=== PATIENT | male | born 1995 | race Caucasian/White ===

== ENCOUNTER 2016-09-27 20:50 | Emergency (ER) | payer OTHER ==
[~2016-09-27] VITALS: Ht 172.7 cm; Wt 6.7 kg
[2016-09-27 20:59] VITALS: TEMP 37.1; Ht 172.7 cm; Wt 6.7 kg
--- NOTE | 2016-09-27 21:43 | EMERGENCY ROOM VISIT NOTE ---
History Report prepared by Naty: Kenneth Arceo Under the Supervision of: Dr. Willy Marshall D.O. First contact with patient: 21:04 Chief Complaint: RECTAL BLEEDING Stated Complaint: BLOODY STOOLS History of Present Illness The patient is a 21 year old male who presents to the Emergency Room with complaints of rectal pain and bleeding that he has been experiencing for the past "few weeks." the patient states that, initially, he only noticed the blood when he would wipe after a bowel movement. This evening he noticed a significant amount of blood in the toilet bowel following a bowel movement, he does not believe there was any blood in the stool. He also complains of a "tearing pain" in the rectum while having a BM. The patient notes that he has a history of depression and is currently in a sex transition. Source of History: patient Onset: a few weeks [employer] Position: other (Rectum) Quality: other (Rectal bleed, Tearing pain ) Associated Symptoms: No melena Review of Systems See HPI for pertinent positives & negatives. A total of 10 systems reviewed and were otherwise negative. Past Medical & Surgical Medical Problems: (1) Depression Depression Family History Cancer Diabetes mellitus Heart disease Hypertension Social History Smoking Status: Never Smoker Marital Status: single Housing Status: lives alone Occupation Status: unemployed Current/Historical Medications Scheduled Escitalopram (Lexapro), 10 MG PO DAILY Estradiol (Estradiol), 1 TAB PO TID Polyethylene Glycol 3350 (Miralax), 0.5 PKT PO DAILY Progesterone Micronized (Progesterone), 1 CAP PO DAILY Quetiapine Fumarate Xr (Seroquel Xr), 200 MG PO DAILY Spironolactone (Aldactone), 50 MG PO DAILY Scheduled PRN Lorazepam (Ativan), 1 MG PO BID PRN for Anxiety Physical Exam Vital Signs Date Time Temp Pulse Resp B/P Pulse Ox O2 Delivery O2 Flow Rate FiO2 09/27/16 22:35 90 18 137/78 98 Room Air 09/27/16 20:59 37.1 114 20 133/76 100 Room Air Physical Exam GENERAL: Patient is awake, alert, and in no acute distress. Patient is resting comfortably and showing no signs of anxiety EYES: The conjunctivae are clear. The pupils are round and reactive. EARS, NOSE, MOUTH AND THROAT: The nose is without any evidence of any deformity. Mucous membranes are moist tongue is midline NECK: The neck is nontender and supple. RESPIRATORY: Normal respiratory effort is noted there is no evidence of wheezing rhonchi or rales CARDIOVASCULAR: Regular rate and rhythm noted there no murmurs rubs or gallops normal S1 normal S2 GASTROINTESTINAL: The abdomen is soft. Bowel sounds are present in all quadrants. Abdomen is nontender PELVIS: The Pelvis is stable. No tenderness to palpation is noted. BACK: No midline tenderness or or step-off noted range of motion in flexion extension as well as rotation no signs of muscle spasm noted MUSCULOSKELETAL/EXTREMITIES: There is no evidence of gross deformity full range of motion is noted in the hips and shoulders SKIN: There is no obvious evidence of any rash. There are no petechiae, pallor or cyanosis noted. NEUROLOGIC: Patient is awake alert and oriented x3. RECTAL: Exam reveals a fissure at 1 o'clock position. There was a small amount of bleeding noted. No hemorrhoids were appreciated, no signs of fluctuance or purulence drainage noted. Medical Decision & Procedures ED Course 2134: The patient was evaluated in room C9. A complete history and physical examination were performed. 2241: Upon reevaluation, the patient is resting in bed. I discussed the results and treatment plan with him. He verbalized agreement of the treatment plan. The patient was discharged home. Medical Decision Differential diagnosis: Etiologies such as diverticulosis, AVM, coagulopathy, colitis, inflammatory bowel disease, malignancy, Racheal-Crawley tear, esophagitis, peptic ulcer disease , variceal bleed, gastritis, epistaxis, fissure, hemorrhoids, as well as others were entertained. Nursing notes reviewed. The patient is a 21-year-old who presented to the emergency department for an evaluation of rectal bleeding. The patient had signs of a fissure on physical exam. His history and physical exam appeared to be consistent with a rectal fissure. I discussed the patient's diagnosis with him. He was encouraged to continue all medications as prescribed and follow-up with his primary care physician for further evaluation. Impression Primary Impression: Rectal fissure Additional Impression: Rectal bleed Scribe Attestation The scribe's documentation has been prepared under my direction and personally reviewed by me in its entirety. I confirm that the note above accurately reflects all work, treatment, procedures, and medical decision making performed by me. Departure Information Dispostion Home / Self-Care Prescriptions Polyethylene Glycol 3350 (MIRALAX) 1 Pow Pow 0.5 PKT PO DAILY, #527 GM Prov: Willy Marshall, DO 09/27/16 Referrals [facility] (PCP) Forms HOME CARE DOCUMENTATION FORM, IMPORTANT VISIT INFORMATION, WORK / SCHOOL INSTRUCTIONS Patient Instructions My [facility] Additional Instructions Follow-up with [facility] this week. Try an [id number] hemorrhoid cream for the anal fissure as directed. Problem Qualifiers
[2016-09-27] MEDS ORDERED: POLY335019 PO (21:44)
[2016-09-27 22:35] VITALS: BP 137/78; PULSE 90; O2SAT 98
[2016-09-27] MEDS ORDERED: ESTR2TAB PO (22:53)
[2016-09-27] MEDS ORDERED: QUET200T2 PO (22:53)
[2016-09-27] MEDS ORDERED: PROG1CAP2 PO (22:53)
[2016-09-27] MEDS ORDERED: ESCI10TA17 PO (22:53)
[2016-09-27] MEDS ORDERED: QUET1TAB32 PO (22:53)
[2016-09-27] MEDS ORDERED: ATV/1 PO (22:53)
[2016-09-27] MEDS ORDERED: SPIR50TA2 PO (22:53)
== END 2016-09-27 22:56 | disposition home or self-care (01) ==
LOC: C.EDB 20:54 → C.EDC 22:56
DX: K60.2 Anal fissure, unspecified (principal); F32.9 Major depressive disorder, single episode, unspecified; Z80.9 Family history of malignant neoplasm, unspecified; Z83.3 Family history of diabetes mellitus; Z82.49 Family history of ischemic heart disease and other diseases of the circulatory system; Z79.899 Other long term (current) drug therapy

== ENCOUNTER 2017-01-03 00:41 | Emergency (ER) | payer OTHER ==
[~2017-01-03] VITALS: Ht 172.7 cm; Wt 64.0 kg
[~2017-01-03 00:41] MED LIST: ATV/1 PO; ESCI10TA17 PO; ESTR2TAB PO; POLY335019 PO; PROG1CAP2 PO; QUET200T2 PO; SPIR50TA2 PO
[2017-01-03 00:54] VITALS: TEMP 36.8; Ht 172.7 cm; Wt 64.0 kg
--- NOTE | 2017-01-03 01:02 | EMERGENCY ROOM VISIT NOTE ---
History Report prepared by Naty: Evangelista Francisco Under the Supervision of: Dr. Leo Martinez M.D. First contact with patient: 00:45 Chief Complaint: ALCOHOL OVERDOSE Stated Complaint: ALCOHOL OVERDOSE/DRUG USE History of Present Illness The patient is a 21 year old white male with no known past medical history who presents to the ED with a cc of alcohol intoxication beginning earlier tonight. Positive for taking LSD. Negative tobacco use. History is limited secondary to intoxication. Source of History: patient History Limited By: intoxication Onset: earlier tonight Position: other (global) Quality: other (alcohol intoxication) Review of Systems ROS unable to obtain 2/2 to substance use and intoxication Past Medical & Surgical Medical Problems: (1) Depression Family History Cancer Diabetes mellitus Heart disease Hypertension Social History Smoking Status: Never Smoker Marital Status: single Housing Status: lives alone Occupation Status: unemployed Current/Historical Medications Scheduled Escitalopram (Lexapro), 10 MG PO DAILY Estradiol (Estradiol), 2 MG PO TID Polyethylene Glycol 3350 (Miralax), 0.5 PKT PO DAILY Progesterone Micronized (Progesterone), 200 MG PO DAILY Quetiapine Fumarate Xr (Seroquel Xr), 200 MG PO DAILY Spironolactone (Aldactone), 50 MG PO DAILY Scheduled PRN Lorazepam (Ativan), 1 MG PO BID PRN for Anxiety Allergies Coded Allergies: No Known Allergies (Unverified , 01/03/17) Physical Exam Vital Signs Date Time Temp Pulse Resp B/P (MAP) Pulse Ox O2 Delivery O2 Flow Rate FiO2 01/03/17 01:08 93 01/03/17 00:54 36.8 84 16 117/68 99 Room Air Physical Exam GENERAL: Well-appearing, NAD. Slurred speech. HENT: No obvious signs of trauma. Normocephalic. EYES: Pupils are round and reactive to light at 5mm. Normal conjunctiva. Sclera non-icteric. NECK: Supple. No nuchal rigidity. FROM. RESPIRATORY: CTAB, no rhonchi, wheezing, crackles CARDIAC: RRR, no MRG ABDOMEN: Soft, NTND, BS+ MSK: No chest wall TTP, no LE edema NEURO: GCS 15, CN 2-12 intact, Good upper and lower extremity strength. She flexes and extends knees and elbows. SKIN: No rash or jaundice noted. Medical Decision & Procedures Laboratory Results Test 01/03/17 01:25 Ethyl Alcohol mg/dL 66.0 mg/dl (0-3) ED Course 0045: The patient was evaluated in room A9. A complete history and physical exam was performed. Medical Decision The patient is a 21 year old white male who identifies as female with no known past medical history who presents to the ED with a cc of alcohol intoxication beginning earlier tonight. Positive for taking ecstasy. Negative tobacco use. History is limited secondary to intoxication. Triage Nursing notes reviewed. The patient's presentation and history were concerning for dehydration, intoxication, substance abuse. Patient was seen and evaluated at the bedside. Patient did have notable slurred speech. Patient admitted to using alcohol as well as acid. Patient denied any pain. Patient followed commands properly. Patient's pupils were equally round and reactive to light. Good upper and lower extremity strength. The patient had no obvious signs of trauma. Patient's alcohol level was fairly low. Patient was stating they wanted to leave. I reassessed the patient which time patient answered all my questions appropriately was in O 3 with a GCS of 15. Patient tolerated by mouth. Patient was given strict follow-up, discharge, return precautions. Patient was also counseled about cessation of alcohol and substance use. Patient agreed with the plan of care patient was safely discharged home. Blood Pressure Screening Patient's blood pressure: Normal blood pressure Impression Primary Impression: Alcohol abuse Additional Impression: Substance abuse Scribe Attestation The scribe's documentation has been prepared under my direction and personally reviewed by me in its entirety. I confirm that the note above accurately reflects all work, treatment, procedures, and medical decision making performed by me. Departure Information Dispostion Home / Self-Care Referrals [facility] (PCP) Forms HOME CARE DOCUMENTATION FORM, IMPORTANT VISIT INFORMATION Patient Instructions Abuse Substance Recognize Teen, Alcohol Abuse - [facility], [facility] Additional Instructions Please return to the emergency department if you have worsening or recurrent symptoms not amenable to at-home treatment. Please call for a follow-up appointment with her primary care physician. Please take your medications as prescribed. If you have other concerns and/or complaints please feel free to also call your primary care physician's office or return the ED for further evaluation, management, and treatment. Problem Qualifiers
[2017-01-03 02:14] VITALS: BP 123/72; PULSE 97; O2SAT 98
[2017-01-05 17:05] LABS: ISTAT HEMOGLOBIN 12.2 g/dl (14.0-18.0); ISTAT IONIZED CALCIUM 1.12 mmol/l (1.12-1.32)
== END 2017-01-03 02:18 | disposition home or self-care (01) ==
LOC: EDBD 00:41 → C.EDA 00:43
DX: F10.129 Alcohol abuse with intoxication, unspecified (principal); F19.10 Other psychoactive substance abuse, uncomplicated; F32.9 Major depressive disorder, single episode, unspecified; Z80.9 Family history of malignant neoplasm, unspecified; Z83.3 Family history of diabetes mellitus; Z82.49 Family history of ischemic heart disease and other diseases of the circulatory system; Z79.899 Other long term (current) drug therapy